=== PATIENT | male | born 1960 | race Caucasian/White ===

== ENCOUNTER 2018-08-12 08:52 | Emergency (ER) | payer SELFPAY ==
[~2018-08-12] VITALS: Wt 99.0 kg
[2018-08-12 08:54] VITALS: BP 161/81; PULSE 77; RESP 18
--- NOTE | 2018-08-12 09:17 | ERD ---
ER Documentation Chief Complaint Chief Complaint left shoulder painf ell from ladder 4 feet up HPI 58-year-old male, presents to the emergency department, complaining of left shoulder pain after falling from a 4 feet tall ladder while the patient was at work today, approximately 30 minutes prior to arrival.. The patient landed on the left upper side of the trunk, he also hit the upper back of his head, he denies any loss of consciousness, no blurred vision, no nausea or vomiting. No distal weakness, numbness or tingling. ROS All systems reviewed and are negative except as per history of present illness. Medications Home Meds Active Scripts Baclofen* (Baclofen*) 10 Mg Tablet, 10 MG PO QHS for 5 Days, #5 TAB Prov:TAWANA GANDARA MD 08/12/18 Ibuprofen* (Motrin*) 600 Mg Tab, 600 MG PO Q6H PRN for PAIN AND OR ELEVATED TEMP, #20 TAB Prov:TAWANA GANDARA MD 08/12/18 Allergies Allergies: Coded Allergies: No Known Allergy (Unverified , 08/12/18) PMhx/Soc History of Surgery: Yes (rotator cuff right shoulder repair) Hx Cardiac Disorders: Yes (hypercholesterolemia,htn) Hx Alcohol Use: Yes (occassional) Hx Substance Use: No Hx Tobacco Use: No Smoking Status: Never smoker Physical Exam Vitals Vital Signs Date Temp Pulse Resp B/P (MAP) Pulse Ox O2 O2 Flow FiO2 Time Delivery Rate 08/12/18 98.1 77 18 161/81 99 08:54 (107) Physical Exam Patient alert, oriented, vital signs stable. Head: Superficial abrasion on the posterior right parietal area, no crepitus, no gross deformity. EYES: PERRLA, EOMI, Sclera and conjunctiva appear normal. EARS: Canals clear, tympanic membranes WNL. THROAT: Normal oropharynx. NECK: Supple, No lymphadenopathy. Full ROM without pain or tenderness. HEART: RRR, no rubs, murmurs, clicks or gallops. LUNGS: Clear to auscultation. ABDOMEN: Soft, non-tender without masses or hepatosplenomegaly. EXTREMITIES: Left shoulder: With tenderness to palpation, normal inspection, full range of motion, distal neurovascular intact, rest of the extremities no edema bilaterally. BACK: Full ROM, no deformity, normal back exam NEURO: Cranial nerves grossly intact, no motor or sensory deficit SKIN: No rashes, no petechia. Results 24 hrs Current Medications Medications Dose Sig/Nadeem Start Time Status Last (Trade) Ordered Route PRN Stop Time Admin Dose Reason Admin Ibuprofen 600 mg ONCE ONCE 08/12/18 DC 08/12/18 (Motrin) PO 10:00 08/12/18 09:42 10:01 650 mg ONCE ONCE 08/12/18 DC 08/12/18 Acetaminophen PO 10:00 08/12/18 09:42 (Tylenol 10:01 Tab) PROCEDURE: XR Cervical Spine. CLINICAL INDICATION: Trauma TECHNIQUE: AP, lateral, swimmers and odontoid views of the cervical spine were performed. The images were reviewed on a PACS workstation. COMPARISON: None. FINDINGS: There is anatomic alignment spine with no step-off. Vertebral bodies have normal height. No fracture is seen. There is C5-C6 and C6-C7 degenerative disc narrowing with spondylosis. The other disc heights are maintained. Pedicles and posterior elements appear normal. IMPRESSION: No fracture or step-off. C5-C6 and C6-C7 degenerative disc disease. PROCEDURE: XR left shoulder. CLINICAL INDICATION: Trauma TECHNIQUE: AP, Internal and external rotation views and transscapular Y-view of the left shoulder were performed. COMPARISON: None. FINDINGS: There is normal osseous mineralization and alignment. No acute fracture or osseous lesion is identified. There are normal joints without evidence of arthritis or dislocation. The soft tissues are unremarkable. IMPRESSION: Unremarkable left shoulder. Procedures/MDM Acute left traumatic shoulder pain: no red flags. Differential diagnosis include but not limited to: Shoulder contusion, rotator cuff injury, tendon/ligament injury, arthritis; low suspicion for fracture, dislocation, septic arthritis. Neurovascular exam grossly intact. no clinical findings suggestive of acute infectious process, no acute deformity, no edema, no rashes. Physical examination and clinical presentation consistent most likely with left shoulder contusion and a scalp abrasion after an injury that occurred at work. During the ED course the patient received treatment with p.o. medications presenting overall improvement of the symptoms. Results and clinical impression discussed with the patient who agrees with management. The patient is stable to be treated outpatient and will be disc harged home with recommendations for ice, rest and partial immobilization. NSAIDs 3 times daily for 5 days and close monitoring. The patient was instructed to follow up with the primary care provider in the next 48h. If symptoms persist, worsen or new symptoms develop, then patient should return to the ED immediately. Instructions explained and given to patient with acknowledgment and demonstrated understanding. Disclaimer: Inadvertent spelling and grammatical errors are likely due to EHR/dictation software use and do not reflect on the overall quality of patient care. Also, please note that the electronic time recorded on this note does not necessarily reflect the actual time of the patient encounter. Departure Diagnosis: Primary Impression: Shoulder injury Additional Impressions: Fall (on) (from) other stairs and steps, initial encounter Work related injury Condition: Stable Additional Instructions: Thank you very much for allowing us to participate in your care. Your health and safety is our top priority at [facility]. Call your primary care doctor TOMORROW for an appointment during the next 2-4 days and bring all the information and medications prescribed. Have prescriptions filled and follow precisely the directions on the label. If the symptoms get worse and your provider is unavailable, return to the Emergency Department immediately. TAWANA GANDARA MD Aug 12, 2018 09:17
[2018-08-12] MEDS ORDERED: IBUPROFEN 600 MG TAB PO ONE (10:00)
[2018-08-12] MEDS ORDERED: ACETAMINOPHEN 325 MG TAB PO ONE (10:00)
[2018-08-12] MEDS ORDERED: IBUP-1542 PO (10:28)
[2018-08-12] MEDS ORDERED: BACL10TA PO (10:28)
== END 2018-08-12 10:41 | disposition home or self-care (01) ==
LOC: FTE 08:52
DX: S49.92XA Unspecified injury of left shoulder and upper arm, initial encounter (principal); I10 Essential (primary) hypertension; W11.XXXA Fall on and from ladder, initial encounter; Y92.89 Other specified places as the place of occurrence of the external cause
CPT/HCPCS: 72040; 73030